=== PATIENT | female | born 1980 | race Caucasian/White ===

== ENCOUNTER 2017-03-02 06:23 | Emergency (ER) | payer SELFPAY ==
[~2017-03-02] VITALS: Ht 170.2 cm; Wt 81.4 kg
[2017-03-02] MEDS ORDERED: METF500T4 PO (06:31)
[2017-03-02 06:41] LABS: GLUCOSE,POINT OF CARE 117 MG/DL (70-110)
[2017-03-02] MEDS ORDERED: HYDROCODONE/ACETAMINOPHEN 5-325 MG TABLET PO ONE (06:45)
[2017-03-02 07:25] VITALS: BP 130/88
== END 2017-03-02 07:33 | disposition home or self-care (01) ==
LOC: EMS 06:25
DX: S97.82XA Crushing injury of left foot, initial encounter (principal); E11.9 Type 2 diabetes mellitus without complications; I10 Essential (primary) hypertension; E78.00 Pure hypercholesterolemia, unspecified; F17.210 Nicotine dependence, cigarettes, uncomplicated; Z88.0 Allergy status to penicillin; V99.XXXA Unspecified transport accident, initial encounter; Y93.89 Activity, other specified; Y92.89 Other specified places as the place of occurrence of the external cause; Y99.8 Other external cause status
CPT/HCPCS: 82962; 99284

== ENCOUNTER 2018-12-04 13:55 | Day surgery (SDC) | payer MEDICAID ==
[~2018-12-04] VITALS: Ht 172.7 cm; Wt 68.6 kg
[~2018-12-04 13:55] MED LIST: METF-960 PO; SODIUM CHLORIDE 0.9% 1,000 ML IV ONE
[2018-12-04] MEDS: SODIUM CHLORIDE 0.9% 1,000 ML IV ONE (14:24)
[2018-12-04] MEDS ORDERED: MIDAZOLAM HCL 5 MG/ML VIAL ONE (14:32)
[2018-12-04] MEDS ORDERED: FentaNYL CITRATE-PF 100 MCG/2 ML VIAL ONE (14:32)
== END 2018-12-04 16:20 | disposition home or self-care (01) ==
LOC: SURGERY 13:55
PROVIDERS: ATTEND Internal Medicine Gastroenterology
DX: K29.70 Gastritis, unspecified, without bleeding (principal); K21.0 Gastro-esophageal reflux disease with esophagitis; K44.9 Diaphragmatic hernia without obstruction or gangrene; Z90.3 Acquired absence of stomach [part of]; Z90.710 Acquired absence of both cervix and uterus; Z88.0 Allergy status to penicillin; Z98.890 Other specified postprocedural states; F17.210 Nicotine dependence, cigarettes, uncomplicated
CPT/HCPCS: 43239; 88305; 88312; 88313; C1769; J2250; J3010; J7030